=== PATIENT | male | born 1975 | race African-American/Black ===

== ENCOUNTER 2017-07-16 08:22 | Emergency (ER) | payer OTHER ==
[~2017-07-16] VITALS: Ht 182.9 cm; Wt 103.6 kg
[~2017-07-16 08:22] MED LIST: HYDROCHLOROTHIA25 MG PO
[2017-07-16 08:42] LABS: APPEARANCE SL.HAZY ((CLEAR)); BILIRUBIN NEGATIVE; BLOOD NEGATIVE; COLOR YELLOW ((YELLOW)); GLUCOSE (STRIP) NEGATIVE; KETONES NEGATIVE; LEUKOCYTES NEGATIVE; NITRITE NEGATIVE; PROTEIN (STRIP) 30; SPECIFIC GRAVITY 1.029 (1.000-1.030); UROBILINOGEN 0.2 MG/DL (0.2-1.0)
[2017-07-16 08:48] LABS: BACTERIA RARE /HPF; EPITHELIAL CELLS RARE /HPF; MUCUS 1+ /LPF; RED BLOOD CELLS 0-5 /HPF (0-5); UCUL ADDED? NO; WHITE BLOOD CELLS 0-5 /HPF (0-5)
[2017-07-16 09:17] LABS: HEMATOCRIT 50.9 % (38.0-50.0); HEMOGLOBIN 17.7 G/DL (12.5-16.6); MCH 33.8 PG (29.0-34.0); MCHC 34.8 G/DL (30.0-36.0); MCV 97.3 FL (86-99); PLATELET COUNT 109 K/uL (156-360); RBC DIS.WIDTH-CV 13.2 % (11.8-14.6); RBC DIS.WIDTH-SD 47.7 % (39-53); RED BLOOD COUNT 5.23 M/uL (4.00-5.50); WHITE BLOOD COUNT 3.7 K/uL (4.1-10.2)
[2017-07-16 09:28] LABS: ALBUMIN 4.5 g/dL (3.2-4.8); CHLORIDE 105 mEq/L (99-109); POTASSIUM 3.9 mEq/L (3.7-5.4); SODIUM 141 mEq/L (136-147)
[2017-07-16 09:30] LABS: GLUCOSE 105 mg/dL (70-99)
[2017-07-16 09:32] LABS: TOTAL BILIRUBIN 1.5 mg/dL (0.0-1.0)
[2017-07-16 09:34] LABS: ALKALINE PHOSPHATASE 47 IU/L (3-129); CREATININE 1.2 mg/dL (0.6-1.3); GFR ESTIMATE (CALCULATED) > 59 mL/min/ (58.99-99999)
[2017-07-16 09:35] LABS: UREA NITROGEN (BUN) 12 mg/dL (9-23)
[2017-07-16 09:36] LABS: AST (GOT) 28 IU/L (2-34)
[2017-07-16 09:37] LABS: ALT (GPT) 24 IU/L (3-49)
[2017-07-16] MEDS ORDERED: BENTYL20 MG PO (13:32)
[2017-07-16] MEDS ORDERED: OMEPRAZOLE20 MG PO (13:32)
[2017-07-16] MEDS ORDERED: ZANTAC150 MG PO (13:32)
[2017-07-16 13:39] VITALS: BP 179/100
== END 2017-07-16 13:40 | disposition home or self-care (01) ==
LOC: EME 08:22
DX: K59.00 Constipation, unspecified (principal); K21.9 Gastro-esophageal reflux disease without esophagitis; I10 Essential (primary) hypertension; Z72.0 Tobacco use
CPT/HCPCS: 74021; 80053; 81003; 85027; 99281; 99284

== ENCOUNTER → 2017-10-09 | Outpatient (CLI) | payer OTHER ==
[~2017-10-09] MED LIST changes: +BENTYL20 MG PO; +OMEPRAZOLE20 MG PO; +ZANTAC150 MG PO
== END | disposition home or self-care (01) ==
LOC: AMB 09:30
PROC: 0HB4XZZ Excision of Neck Skin, External Approach (ICD-10-PCS; principal; 2017-10-09)
DX: L72.0 Epidermal cyst (principal)
CPT/HCPCS: 88304